=== PATIENT | male | born 1965 | race Caucasian/White ===

== ENCOUNTER → 2022-04-27 | Outpatient (CLI) | payer OTHER, SELFPAY ==
--- NOTE | 2022-04-27 09:35 | RAD_ITS ---
INDICATION: Segmental and somatic dysfunction of cervical region EXAMINATION/TECHNIQUE: X-RAY - XR Spine Cervical 4 or 5 Views COMPARISON: None. FINDINGS: VERTEBRAE: Preserved vertebral body height. No fracture. No spondylolisthesis. Preservation of the normal cervical lordosis. No significant facet arthropathy. DISCS: Narrowed disc spaces at C5-6 and C6-7 with mild endplate spurring and bilateral neural foraminal encroachment.. CT or MRI would be helpful for further evaluation if indicated NECK SOFT TISSUES: No prevertebral soft tissue widening. LUNG APICES: Clear. RAD/Cerv Spine 4 or 5 Views IMPRESSION: Mild degenerative change. No acute fracture or other significant bony pathology Electronically Signed: Alfonso Burr MD at 17:25 EST ,
== END | disposition home or self-care (01) ==
PROVIDERS: Visit Provider Chiropractor Orthopedic
DX: M99.01 Segmental and somatic dysfunction of cervical region (principal)
CPT/HCPCS: 72050